=== PATIENT | female | born 1950 | race Caucasian/White ===

== ENCOUNTER 2016-09-10 09:58 | Emergency (ER) | payer BC, MEDICARE ==
[~2016-09-10] VITALS: Ht 157.5 cm; Wt 60.0 kg
[~2016-09-10 09:58] MED LIST: AUGM875T PO
[2016-09-10 10:00] VITALS: BP 135/82; PULSE 72; RESP 15; TEMP 98.2; O2SAT 97
[2016-09-10] MEDS ORDERED: ORPH100T99 PO (11:53)
--- NOTE | 2016-09-10 11:59 | PD ---
HPI Chief Complaint: GI Complaint Time Seen by Provider: 11:53 Travel History International Travel<30 days: No Contact w/Intl Traveler<30days: No Traveled to known affect area: No History of Present Illness HPI The patient was seen and examined in the presence of the nurse. This patient is deaf and formal interpretation program was used. She complains of some right upper back discomfort. Feels a spasm there. No fall or injury. Symptoms severity is mild. No shortness of breath or chest pain. PFSH Past Medical History Cardiovascular Problems: Yes Immunizations Current: Yes Menopausal: Yes Past Surgical History Other Surgery: Yes (neck ) Social History Alcohol Use: Yes (soaical ) Tobacco Use: No Substance Use: No Allergies-Medications (Allergen,Severity, Reaction): Coded Allergies: No Known Allergies (Unverified , 09/10/16) Reported Meds & Prescriptions Reported Meds & Active Scripts Active No Active Prescriptions or Reported Medications Review of Systems General / Constitutional: No: Fever HENT: No: Headaches Cardiovascular: No: Chest Pain or Discomfort Physical Exam Narrative GASTROINTESTINAL: Abdomen soft, non-tender, nondistended. Positive bowel sounds. No hepato-splenomegaly, or palpable masses. No guarding. SKIN: Inspection shows no rash or ulcers. Palpation shows no induration or nodules. Back: No midline or CVA tenderness. No abnormality in the region seen objectively Data Data Last Documented VS Vital Signs Date Time Temp Pulse Resp B/P Pulse Ox O2 Delivery O2 Flow Rate FiO2 09/10/16 11:20 18 09/10/16 10:00 98.2 72 135/82 97 MDM Medical Decision Making Medical Screen Exam Complete: Yes Emergency Medical Condition: Yes Medical Record Reviewed: Yes Differential Diagnosis Rhomboid strain, back spasm, sciatica Narrative Course I have reviewed the patient's electronic medical record. Presentation seems most consistent with musculoskeletal back pain. There are no objective findings and no injury. Her symptoms seem pretty mild. Norflex written for symptom relief to use as needed Diagnosis Primary Impression: Spasm of back muscles Additional Instructions: The patient was advised to follow up with their physician and return if they worsen. The patient was warned about potential sedation for the medications they will receive on prescription. Med/Other Pt SpecificInfo: Prescription(s) given Scripts Orphenadrine ER 12 HR (Orphenadrine CR)100 Mg Xml017 Mg PO Q12HR PRN (SPASM) # 14 TAB Ref 0 Prov:Sundar Whatley MD 09/10/16 Disposition: 01 DISCHARGE HOME Condition: Stable Sundar Whatley MD Sep 10, 2016 11:59
== END 2016-09-10 12:22 | disposition home or self-care (01) ==
LOC: NEPD 09:58
DX: M62.830 Muscle spasm of back (principal); Z86.79 Personal history of other diseases of the circulatory system
CPT/HCPCS: 99283